=== PATIENT | male | born 1980 | race African-American/Black ===

== ENCOUNTER 2018-02-11 23:20 | Emergency (ER) | payer OTHER ==
[~2018-02-11 23:20] MED LIST: DIFLUCAN150 MG PO; LOTRISONE CREAM15 GM TOP; MOTRIN 600 MG600 MG PO
--- NOTE | 2018-02-12 01:29 | ED GENERAL ADULT ---
History of Present Illness General Chief Complaint: General Adult Stated Complaint: PT C/O " I HAVE THIS COLD" Source: patient Exam Limitations: no limitations Vital Signs & Intake/Output Vital Signs & Intake/Output Vital Signs Date Time Temp Pulse Resp B/P B/P Pulse O2 O2 Flow FiO2 Mean Ox Delivery Rate 02/12 0132 99.8 103 18 131/62 100 Room Air Allergies Coded Allergies: NO KNOWN ALLERGIES (08/12/15) Reconcile Medications Amoxicillin/Potassium Clav (Augmentin 875-125 Tablet) 875 MG-125 MG TABLET 1 TAB PO BID sinusitis Fluconazole (Diflucan) 150 MG TAB 1 TAB PO DAILY tinea cruris Ibuprofen 800 MG TABLET 1 TAB PO TID PRN fever Ibuprofen (Motrin 600 MG Tab) 600 MG TAB 1 TAB PO Q6P PRN PAIN Lotrisone (Lotrisone Cream) 15 GM CRM 1 NATHAN TOP QAMPM tinea cruris apply to affected area(s) for 3 weeks Triage Nurses Notes Reviewed? yes Onset: Gradual Duration: week(s):, waxing and waning Timing: recent history Injury Environment: home Severity: mild No Modifying Factors: none Modifying Factors: Improves With: rest. Associated Symptoms: cough, sinus congestion HPI: 37 yo gentleman in prior good health presents with cough, sinus congestion with increased sputum production, intermittent fevers. He notes no shortness of breath, chills, abdominal pain, chest pain, dyspnea, n/ v/diarrhea. He has not taken other medications. He is otherwise well. Past History Medical History Any Pertinent Medical History? none Surgical History Surgical History: non-contributory Psychosocial History What is your primary language Persian Family History Hx Contributory? No Review of Systems Review of Systems Constitutional: Reports: no symptoms. EENTM: Reports: no symptoms. Respiratory: Reports: no symptoms. Cardiovascular: Reports: no symptoms. GI: Reports: no symptoms. Genitourinary: Reports: no symptoms. Musculoskeletal: Reports: no symptoms. Skin: Reports: no symptoms. Neurological/Psychological: Reports: no symptoms. Hematologic/Endocrine: Reports: no symptoms. Immunologic/Allergic: Reports: no symptoms. All Other Systems: Reviewed and Negative Physical Exam Physical Exam General Appearance: well developed/nourished, no apparent distress Head: atraumatic, normal appearance Eyes: Bilateral: normal appearance. Ears, Nose, Throat: normal pharynx, inflamed turbinates, mild sinus tenderness to palpation. Neck: normal inspection, supple, full range of motion Respiratory: normal breath sounds, chest non-tender, no respiratory distress, quiet respiration Cardiovascular: regular rate/rhythm Gastrointestinal: normal bowel sounds, soft, non-tender, no organomegaly Back: normal inspection, normal range of motion Extremities: normal inspection, normal capillary refill, normal range of motion, no edema Neurologic/Psych: no motor/sensory deficits, awake, alert, oriented x 3 Skin: intact, normal color Core Measures ACS in differential dx? No CVA/TIA Diagnosis: No Sepsis Present: No Sepsis Focused Exam Completed? No Progress Differential Diagnoses I considered the following diagnoses in my evaluation of the patient: sinusitis - bacterial vs viral vs allergic vs other. Plan of Care: augmentin/nsaids, close follow up advised. pt is well appearing in the ED. Initial ED EKG: none Departure Departure Disposition: HOME OR SELF CARE Condition: Stable Clinical Impression Primary Impression: Sinusitis Secondary Impressions: Fever Referrals: Unknown (PCP/Family) Departure Forms: Customer Survey General Discharge Information Prescriptions: Current Visit Scripts Amoxicillin/Potassium Clav (Augmentin 875-125 Tablet) 1 TAB PO BID #20 TAB Ibuprofen 1 TAB PO TID PRN fever #50 TAB Critical Care Note Critical Care Note Critical Care Time: non-applicable
[2018-02-12 01:32] VITALS: BP 131/62
[2018-02-12] MEDS ORDERED: AUGMENTIN 875-1 EACH PO (01:36)
[2018-02-12] MEDS ORDERED: IBUPROFEN800 M1 PO (01:36)
== END 2018-02-12 01:41 ==
LOC: ERH 23:20
DX: J32.9 Chronic sinusitis, unspecified (principal)

== ENCOUNTER 2018-03-29 18:24 | Emergency (ER) | payer OTHER ==
[~2018-03-29] VITALS: Ht 180.3 cm; Wt 81.6 kg
[~2018-03-29 18:24] MED LIST changes: +AUGMENTIN 875-1 EACH PO; +CLARINEX5 M1 PO; +FLONASE ALLERG9.9 ML NAS; +IBUPROFEN800 M1 PO; +PATADAY2.5 ML OPH
--- NOTE | 2018-03-29 19:19 | ED GI/GU/ABDOMINAL COMPLAINT ---
History of Present Illness General Chief Complaint: Abdominal Pain/Flank Pain Stated Complaint: ABD PAIN Source: patient Exam Limitations: no limitations Vital Signs & Intake/Output Vital Signs & Intake/Output Vital Signs Date Time Temp Pulse Resp B/P B/P Pulse O2 O2 Flow FiO2 Mean Ox Delivery Rate 03/29 2245 98.0 98 20 142/68 98 Room Air 03/29 2158 100 18 130/78 99 Room Air 03/29 1831 97.5 116 18 128/80 97 Room Air ED Intake and Output 03/30 0000 03/29 1200 Intake Total 1000 Output Total Balance 1000 Intake, IV 1000 Patient 180 lb Weight Weight Reported by Patient Measurement Method Allergies Coded Allergies: NO KNOWN ALLERGIES (08/12/15) Reconcile Medications Amoxicillin/Potassium Clav (Augmentin 875-125 Tablet) 875 MG-125 MG TABLET 1 TAB PO BID sinusitis Desloratadine (Clarinex) 5 MG TABLET 1 TAB PO DAILY PRN ALLERGIES Fluconazole (Diflucan) 150 MG TAB 1 TAB PO DAILY tinea cruris Fluticasone Propionate 50 MCG/ACTUATION SPRAY.SUSP 2 SPRAY NASB DAILY ALLERGIES (Reported) Fluticasone Propionate (Flonase Allergy Relief) 50 MCG/ACTUATION SPRAY.SUSP 2 SPRAY SHA DAILY PRN CONGESTION Ibuprofen 800 MG TABLET 1 TAB PO TID PRN fever Ibuprofen (Motrin 600 MG Tab) 600 MG TAB 1 TAB PO Q6P PRN PAIN Lotrisone (Lotrisone Cream) 15 GM CRM 1 NATHAN TOP QAMPM tinea cruris apply to affected area(s) for 3 weeks Olopatadine HCl (Pataday) 0.2 % DROPS 1 GTT OPH DAILY ALLERGIES Ondansetron (Zofran Odt) 4 MG TAB.RAPDIS 1 TAB SL TID PRN NAUSEA Triage Note: REPORTS ABDOMINAL DISCOMFORT X 2 MONTHS INTERMITTENTLY. REPORTS TO FEEL BLOATED AND TENDER TO TOUCH. DENIED DIFF GOING TO THE BATHROOM. ALSO REPORTS NON DESIRED WEIGHT LOSS. Triage Nurses Notes Reviewed? yes Onset: Abrupt Duration: week(s): (GREATER THAN 6 MONTHS) Timing: recent history Quality/Severity: dullness, fullness Severity Numbers: 7 Location: generalized abdomen Radiation: no radiation Activities at Onset: none Prior Abdominal Problems: similar symptoms Past Sexual History: Unobtainable at this time No Modifying Factors: none Modifying Factors: Worsens With: palpation. Associated Symptoms: abdominal pain, WEIGHT LOSS HPI: 38-year-old male with no past medical history of present for evaluation of abdominal pain and weight loss. Patient states that for the past at least 6 months he has had a pain and fullness in his abdomen. The pain is located diffusely in the abdomen worse in the periumbilical area. He describes it as a fullness and cramping. He says the pain is only present with palpation does not cause him any problems when he is not touching the area. He does report he said a decreased appetite and reports nausea and several episodes of vomiting over the past week. He states that the decreased appetite and also going on for months and that he has lost a large amount of weight. He states that over the past week though that he's had the nausea and vomiting. He states that he only vomits when he eats certain foods. He does not have pain when eating food. (Jonas Chow) Past History Travel History Traveled to [place] past 21 day No Medical History Any Pertinent Medical History? 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 No (Jonas Chow) Review of Systems Review of Systems Constitutional: Reports: malaise, weakness, unexplained weight loss. EENTM: Reports: no symptoms. Respiratory: Reports: no symptoms. Cardiovascular: Reports: no symptoms. GI: Reports: see HPI, abdominal pain, nausea, vomiting. Genitourinary: Reports: no symptoms. Musculoskeletal: Reports: no symptoms. Skin: Reports: no symptoms. Neurological/Psychological: Reports: no symptoms. Hematologic/Endocrine: Reports: no symptoms. Immunologic/Allergic: Reports: no symptoms. All Other Systems: Reviewed and Negative (Jonas Chow) Physical Exam Physical Exam General Appearance: well developed/nourished, no apparent distress, alert, awake Head: atraumatic, normal appearance Eyes: Bilateral: normal appearance, PERRL, EOMI. Ears, Nose, Throat, Mouth: moist mucous membrane Neck: normal inspection, supple, full range of motion Respiratory: normal breath sounds, chest non-tender, no respiratory distress, lungs clear Cardiovascular: regular rate/rhythm, normal peripheral pulses Peripheral Pulses: 2+ radial (R), 2+ radial (L) Gastrointestinal: normal bowel sounds, mass, hepatomegaly, spleenomegaly, THERE IS A LARGE RIGID MASS PRESENT IN THE LEFT UPPER QUADRANT LEFT PERIUMBILICAL EPIGASTRIC AND LEFT LOWER QUADRANT. tHIS AREA IS TENDER TO PALPATION. tHE RIGHT LOWER QUADRANT IS SOFT AND NONTENDER. Back: normal inspection, normal range of motion, no vertebral tenderness Extremities: normal range of motion Neurologic/Psych: no motor/sensory deficits, awake, alert, oriented x 3, normal gait Skin: intact, normal color, warm/dry Core Measures ACS in differential dx? No Sepsis Present: No Sepsis Focused Exam Completed? No (Patricio ZAVALA,Jonas) Progress Differential Diagnosis: diverticulitis, gastritis, hernia, pancreatitis, PUD/ GERD, perforated viscous, SBO, LYMPHOMA, LEUKEMIA, MASS, ABSCESS Plan of Care: Orders Procedure Date/time Status LACTIC ACID 03/30 0008 Active Add-on Test (ER Only) 03/29 2242 Active Add-on Test (ER Only) 03/29 2112 Active PARTIAL THROMBOPLASTIN TIME 03/29 2112 Complete PROTHROMBIN TIME 03/29 2112 Complete LACTIC ACID 03/29 2108 Complete Add-on Test (ER Only) 03/29 2101 Active MONOSPOT TEST 03/29 1930 Complete FERRITIN 03/29 1930 Complete SERUM IRON 03/29 1930 Complete URINALYSIS 03/29 1855 Complete LIPASE 03/29 1855 Complete COMPREHENSIVE METABOLIC PANEL 03/29 1855 Complete CBC WITHOUT DIFFERENTIAL 03/29 1855 Complete Laboratory Tests 03/29/182209: Flow Cytometry Specimen Pending 03/29/182109: Lactic Acid 0.9, PT 15.8 H, INR 1.44 H, APTT 28 03/29/182053: Urinalysis LIGHT H, Urine Color YEL, Urine Clarity CLEAR, Urine pH 6.0, Ur Specific Criders 1.025, Urine Protein TRACE H, Urine Ketones NEG, Urine Nitrite NEG, Urine Bilirubin NEG, Urine Urobilinogen 1.0, Ur Leukocyte Esterase NEG, Ur Microscopic SEDIMENT EXAMINED, Urine RBC 1-3, Urine WBC 1-3 H, Urine Mucus RARE , Urine Hemoglobin NEG, Urine Glucose NEG 03/29/181929: Anion Gap 13, Estimated GFR > 60, BUN/Creatinine Ratio 19.0, Glucose 79, Calcium 9.2, Iron 38 L, Ferritin 99.6, Total Bilirubin 0.6, AST 15 L, ALT 23, Alkaline Phosphatase 70, Total Protein 6.8, Albumin 3.8, Globulin 3.0, Albumin/Globulin Ratio 1.3, Lipase 60, CBC w Diff MAN DIFF ORDERED, RBC 3.87 L, MCV 73.5 L, MCH 23.2 L, MCHC 31.5 L, RDW 19.4 H, MPV 7.9, Gran % 35.0 L, Lymphocytes % 57.4 H, Monocytes % 2.9, Eosinophils % 0.3, Basophils % 4.4 H, Absolute Granulocytes 7.5 H, Segmented Neutrophils 32 L, Absolute Lymphocytes 12.4 H, Lymphocytes 67 H, Monocytes 1 L, Absolute Monocytes 0.6, Absolute Eosinophils 0.1, Absolute Basophils 1.0, Nucleated RBCs 1 H, Platelet Estimate VERIFIED BY SMEAR , Polychromasia 1+, Anisocytosis 1+, Fld Total RBCs Counted 100, Infectious [place] Titer NEGATIVE PT has a very large left sided abdominal mass which may be his spleen. He's been having abdominal pain and weight loss for greater than 6 months. He appears clinically well and has vital signs are stable. Labs CT scan ordered. Blood work shows a white count of 21,000 and a hemoglobin OF 9. He has no baseline to compare to. He denies any melena or bright red blood per rectum. CT scan shows massive splenomegaly with retroperitoneal and inguinal lymphadenopathy. Spoke with on-call sales representative electric service who suspects lymphoma they recommend peripheral blood flow cytometry which was ordered here and sent. Patient will follow up with hematology on Saturday with Dr. Torres. Reviewed results with patient. Advised him to rest and avoid excessive physical activity anything THAT WOULD INCREASE risk of splenic rupture. Discussed with him of the importance of close follow-up. Case discussed Dr. Vidal agrees. Diagnostic Imaging: Viewed by Me: CT Scan. Discussed w/RAD: CT Scan. Radiology Impression: PATIENT: MELISSA COULTER PRESENT AGE: 38 PATIENT ACCOUNT NO: [id number] : 78 LOCATION: [facility] ORDERING PHYSICIAN: Jonas ZAVALA SERVICE DATE: 03/29/18 EXAM TYPE: CAT - CT ABD & PELVIS W IV CONTRAST EXAMINATION: CT ABD PELVIS W IV CONTRAST CLINICAL INFORMATION: Malignancy, hernia, weight loss abdominal mass COMPARISON: None TECHNIQUE: Multidetector volumetric imaging was performed from the superior aspect of the liver through the pubic symphysis 95 mL Optiray 320 injected. Sagittal and coronal reformatted images were obtained on the technologist's workstation. DLP: 341 mGy-cm FINDINGS: LOWER THORAX: Included lung bases are clear. HEPATOBILIARY: No focal hepatic lesions. No biliary ductal dilatation. GALLBLADDER: Gallbladder unremarkable. SPLEEN: Spleen is massively enlarged measuring 34 cm craniocaudally 22 x 11 cm transversely occupying almost the entire LEFT side of the abdomen displacing the LEFT kidney bowel, pancreas to the RIGHT PANCREAS: Poorly visualized grossly unremarkable. STOMACH AND GASTROINTESTINAL TRACT: Stomach is grossly unremarkable. There is no bowel distention or thickening. ADRENALS: No adrenal nodules. KIDNEYS/URETERS: There are 2 tiny 2 mm and 3 mm stone in the LEFT kidney nonobstructing. Left kidney is displaced to the RIGHT. Right kidney is unremarkable. No hydronephrosis. URINARY BLADDER: Urinary bladder is decompressed unopacified. PELVIC VISCERA: Unremarkable PERITONEUM: No free air or fluid. LYMPH NODES: Enlarged retroperitoneal para-aortic lymph nodes detected. Also few mildly enlarged lymph nodes found in the inguinal region. VASCULAR: Unremarkable BONES, ABDOMINAL WALL AND SOFT TISSUES: Age-appropriate changes of the spine and skeletal system, no destructive osteolytic or osteosclerotic bone lesion found IMPRESSION: 1. Massively enlarged spleen measuring up to 34 cm craniocaudally occupying almost the entire LEFT side of the abdomen displacing the bowel, the LEFT kidney, the pancreas and stomach to the RIGHT. Combined with few enlarged retroperitoneal and inguinal lymph nodes raising concern for possible lymphoproliferative disease. 2. There are 2 small nonobstructing LEFT kidney stones. DICTATED BY: Clifton OLIVER,Getachew DATE/TIME DICTATED:03/29/182113 ASSISTANT TO THE DIRECTOR:DANDRE DATE/TIME TRANSCRIBED:03/29/182113 CONFIDENTIAL, DO NOT COPY WITHOUT APPROPRIATE AUTHORIZATION. <Electronically signed in Other Vendor System> SIGNED BY: Getachew Lazo MD 03/29/182123 Initial ED EKG: none (Patricio ZAVALA,Jonas) Departure Departure Disposition: HOME OR SELF CARE Condition: Stable Clinical Impression Primary Impression: Splenomegaly Referrals: Leander Larson MD Patient Has No Primary Care Dr (PCP/Family) Additional Instructions: Make a follow-up appointment with provided sales representative electric service DR ARROYO SOON possible. Is very important that you follow-up within the next few days. Rest avoid excessive physical activity that would put YOU at risk of rupture of your spleen. Increase fluids Tylenol ibuprofen for pain. Return to the emergency department with any concerns. Departure Forms: Customer Survey General Discharge Information Prescriptions: Current Visit Scripts Ondansetron (Zofran Odt) 1 TAB SL TID PRN NAUSEA #10 TAB (Jonas Chow) PA/CHIEF OPERATOR LOCK TENDER Co-Sign Statement Statement: ED Attending supervision documentation- [] I saw and evaluated the patient. I have also reviewed all the pertinent lab results and diagnostic results. I agree with the findings and the plan of care as documented in the PA's/CHIEF OPERATOR LOCK TENDER's documentation. [X] I have reviewed the ED Record and agree with the PA's/CHIEF OPERATOR LOCK TENDER's documentation. [] Additions or exceptions (if any) to the PAs/CHIEF OPERATOR LOCK TENDER's note and plan are summarized below: [] (Young OLIVER,Ronny Chaudhari)
[2018-03-29 19:42] LABS: ABSOLUTE EOSINOPHIL COUNT 0.1 /CUMM (0.0-0.7); ABSOLUTE GRANULOCYTE CT 7.5 /CUMM (1.4-6.5); ABSOLUTE LYMPH COUNT 12.4 /CUMM (1.2-3.4); ABSOLUTE MONOCYTE COUNT 0.6 /CUMM (0.10-0.60); BASOPHIL % 4.4 % (0.0-2.0); EOSINOPHIL % 0.3 % (0-5); HEMATOCRIT 28.5 % (42-52); MEAN CORPUSCULAR HGB 23.2 PG (27.0-31.0); MEAN CORPUSCULAR HGB CONC 31.5 G/DL (33.0-37.0); MEAN CORPUSCULAR VOLUME 73.5 FL (80.0-94.0); MEAN PLATELET VOLUME 7.9 FL (7.4-10.4); PLATELET COUNT 230 /CUMM (130-400); RBC DISTRIBUTION WIDTH 19.4 % (11.5-14.5); RED BLOOD CELL CT 3.87 /CUMM (4.70-6.10); WHITE BLOOD CELL COUNT 21.5 /CUMM (4.8-10.8)
[2018-03-29] MEDS ORDERED: FLUTICASONE PRO16 GM NASB (19:51)
--- NOTE | 2018-03-29 21:24 | CT SCAN REPORT ---
EXAMINATION: CT ABD PELVIS W IV CONTRAST CLINICAL INFORMATION: Malignancy, hernia, weight loss abdominal mass COMPARISON: None TECHNIQUE: Multidetector volumetric imaging was performed from the superior aspect of the liver through the pubic symphysis 95 mL Optiray 320 injected. Sagittal and coronal reformatted images were obtained on the technologist's workstation. DLP: 341 mGy-cm FINDINGS: LOWER THORAX: Included lung bases are clear. HEPATOBILIARY: No focal hepatic lesions. No biliary ductal dilatation. GALLBLADDER: Gallbladder unremarkable. SPLEEN: Spleen is massively enlarged measuring 34 cm craniocaudally 22 x 11 cm transversely occupying almost the entire LEFT side of the abdomen displacing the LEFT kidney bowel, pancreas to the RIGHT PANCREAS: Poorly visualized grossly unremarkable. STOMACH AND GASTROINTESTINAL TRACT: Stomach is grossly unremarkable. There is no bowel distention or thickening. ADRENALS: No adrenal nodules. KIDNEYS/URETERS: There are 2 tiny 2 mm and 3 mm stone in the LEFT kidney nonobstructing. Left kidney is displaced to the RIGHT. Right kidney is unremarkable. No hydronephrosis. URINARY BLADDER: Urinary bladder is decompressed unopacified. PELVIC VISCERA: Unremarkable PERITONEUM: No free air or fluid. LYMPH NODES: Enlarged retroperitoneal para-aortic lymph nodes detected. Also few mildly enlarged lymph nodes found in the inguinal region. VASCULAR: Unremarkable BONES, ABDOMINAL WALL AND SOFT TISSUES: Age-appropriate changes of the spine and skeletal system, no destructive osteolytic or osteosclerotic bone lesion found IMPRESSION: 1. Massively enlarged spleen measuring up to 34 cm craniocaudally occupying almost the entire LEFT side of the abdomen displacing the bowel, the LEFT kidney, the pancreas and stomach to the RIGHT. Combined with few enlarged retroperitoneal and inguinal lymph nodes raising concern for possible lymphoproliferative disease. 2. There are 2 small nonobstructing LEFT kidney stones.
[2018-03-29 21:54] LABS: PT 15.8 SEC (9.4-12.5); PTT 28 SEC (25-37)
[2018-03-29] MEDS ORDERED: ZOFRAN ODT4 M1 SL (22:39)
[2018-03-29 22:45] VITALS: BP 142/68
== END 2018-03-29 22:46 ==
LOC: ERH 18:24
PROVIDERS: Physician Assistant Medical
DX: R16.1 Splenomegaly, not elsewhere classified (principal); R10.84 Generalized abdominal pain; R11.2 Nausea with vomiting, unspecified
CPT/HCPCS: 74177; 81001; 96360

== ENCOUNTER → 2018-04-04 | Day surgery (SDC) | payer OTHER ==
[~2018-04-04] VITALS: Ht 175.3 cm; Wt 81.6 kg
[~2018-04-04] MED LIST changes: +FLUTICASONE PRO16 GM NASB; +ZOFRAN ODT4 M1 SL
--- NOTE | 2018-04-14 13:06 | Operative Report ---
Operative/Inv Procedure Report Surgery Date: 04/04/18 Name of Procedure: Excision of left inguinal lymph node Pre-Operative Diagnosis: Splenomegaly lymphadenopathy Post-Operative Diagnosis: Same Estimated Blood Loss: scant Surgeon/Distribution Collection Operator: Daniel Herrera MD Anesthesia: local monitored anesthesi Operative/Procedure Note Note: Patient positioned supine after successful induction of Mac sedation the patient 's bilateral inguinal regions were clipped prepped and draped in usual sterile fashion it seemed that the largest most accessible palpable node was on the left , we aimed an oblique incision over it measuring about 3 cm long and after injecting local anesthetic and incision with a 15 blade following the skin lines. This was deepened through the fascia until we exposed the surface of the lymph node which was then dissected circumferentially care was taken to avoid injury to underlying deeper structures and nerves and vessels and then the elongated rounded lymph node was excised there were others smaller bilaterally cautery was used for most of the dissection we checked for hemostasis no sutures ligation was needed and reapproximated the incision in layers using interrupted 3-0 Vicryl sutures deep and then running subcuticular 4-0 Biosyn suture for the skin itself followed by Mastisol Steri-Strips Telfa and Tegaderm. EBL minimal lap and sponge counts correct wound expectancy clean IV fluids crystalloid complications none patient tolerated the procedure well was extubated and returned to recovery room in satisfactory condition.
== END ==
LOC: STS 01:26
DX: C82.95 Follicular lymphoma, unspecified, lymph nodes of inguinal region and lower limb (principal); R59.0 Localized enlarged lymph nodes; R16.1 Splenomegaly, not elsewhere classified
CPT/HCPCS: 88184; J0131; J0690; J2250

== ENCOUNTER → 2018-04-25 | Day surgery (SDC) | payer OTHER ==
[~2018-04-25] VITALS: Ht 175.3 cm; Wt 81.6 kg
--- NOTE | 2018-04-25 10:19 | RADIOLOGY REPORT ---
EXAMINATION: XR PORTABLE CHEST CLINICAL INFORMATION: Status post Port-A-Cath. COMPARISON: PET CT performed 04/08/2018. TECHNIQUE: Portable frontal view of the chest was obtained. FINDINGS: Right internal jugular Port-A-Cath with tip terminating over the right atrium near the caval atrial junction. No pneumothorax. No parenchymal consolidation or pleural effusion. No mediastinal widening. No acute osseous abnormalities. IMPRESSION: Right internal jugular Port-A-Cath with tip terminating over the right atrium near the caval atrial junction. No pneumothorax.
--- NOTE | 2018-04-25 17:30 | RADIOLOGY REPORT ---
EXAMINATION:\H\ \N\XR CHEST CLINICAL INFORMATION: Port-A-Cath insertion in operating room. COMPARISON: Chest CT from 04/08/2018. TECHNIQUE: Intraoperative fluoroscopic imaging of the chest was utilized at the time of Port-A-Cath insertion. NUMBER OF SAVED IMAGES: 2. FLUOROSCOPY TIME: 0.6 minutes. DOSE: 3.71 mGy (0.120 mGym2) FINDINGS: A right chest wall medication port has been placed. The catheter loops over the medial clavicle to enter the internal jugular vein. The tip of the catheter is at the level of the junction of the superior vena cava and right atrium. Please refer to the operative report. IMPRESSION: Fluoroscopic imaging of the chest was utilized at the time of Port-A-Cath insertion.
--- NOTE | 2018-04-28 18:26 | Operative Report ---
Operative/Inv Procedure Report Surgery Date: 04/25/18 Name of Procedure: Fluoroscopic and ultrasound guided insertion of tunneled Port-A-Cath via right internal jugular vein Pre-Operative Diagnosis: Lymphoma, splenomegaly Post-Operative Diagnosis: Same Estimated Blood Loss: scant Surgeon/Health/Safety Job Titles: Javier OLIVER,Daniel Muniz Anesthesia: general endotracheal tube Operative/Procedure Note Note: With the patient supine on the OR table, right arm tucked, head not turned, after induction of MAC sedation, the patient's right subclavian area, including the shoulder neck and contralateral chest, were prepped and draped in the usual sterile fashion. After injecting local anesthetic in the right infraclavicular area, skin, subcutaneous to the clavicle, and inferiorly where the pocket will be, the patient was repositioned to Trendelenburg. Putting your right index finger on the sternal notch and thumb pressing down lateral to the curve of the clavicle, I made a puncture through the skin with the 15 blade scalpel next to thumb. Then along that line towards the tip of your finger, advance a large- bore needle, bevel towards the feet, on a slip tip 10 mL syringe barrel flat against the deltoid, advancing to bone and then "walking" it down just under the clavicle keeping the needle flat as possible, while maintaining vacuum with the plunger, trying to get flashed axis the subclavian vein and tied a few times and couldn't do it so I switched my approach to the right internal internal jugular vein. Aiming at the apex of the small narrow triangle between the 2 heads of the sternocleidal mastoid muscle with the patient's head turned to the left I accessed the right internal jugular vein with the Brown 22-gauge finder needle first, and then made a small bubba in the skin with a 15 blade next to this needle and advanced the large-bore needle but again was unable to access the vein it seemed unusual we checked our positioning and then decided to use the ultrasound where we were able to identify the vein (separate from the carotid) and then I was able to access it with a large-bore needle, confirming the position with the C-arm fluoroscope, making sure the wire is traveling down along the cava towards the right side of the heart and not up or across, and no ectopy. Next I secured the wire to the drape, measured (approximately 27 cm), cut and attached the catheter to the port. Approximately 3-4 cm inferior to the stick site a 2-1/2 cm long skin incision was made with a 15 blade scalpel along Langers lines. It was deepened with cautery and a space was developed inferiorly under the subcutaneous layer. The Port-A-Cath was laid in there and secured in [address] with 2-0 Prolene through the holes in the port, the sutures were kept loose on snaps at this point. Next the catheter was tunneled up subcutaneously with the tunneler up over the clavicle into the stick site in the neck. Then the dilator / peel-away piece, was passed over the wire until you could feel it slide into the vein while advancing simultaneously pull the dilator out and advance the sheath, eventually pulling out the dilator and wire completely. Then the catheter was put into the sheath as far as it'll go then while holding that knuckle down with DeBakey's, gently peel-away the sheath with your podiatric assistant. Now the correct position of the catheter was confirmed with the fluoroscope, using a Delgado needle and heparinized saline solution, the catheter was first aspirated then flushed with approximately 3 mL's, with minimal resistance. The patient was repositioned to neutral, after tying down the 2 Prolenes, the larger incision was closed in layers, 3-0 Vicryl deep and 4-0 subcuticular Monocryl for the skin, and one subcuticular Monocryl for the stick site. Both areas were covered with Mastisol Steri-Strips Telfa and Tegaderm. Chest x-ray was ordered to be done in the recovery room. Lap and sponge counts were correct. Wound expectancy was clean, IV fluids crystalloid, complications none, patient tolerated the procedure well was awakened and returned to the recovery room in satisfactory condition.
== END ==
LOC: STS 02:00
DX: C85.90 Non-Hodgkin lymphoma, unspecified, unspecified site (principal); R16.1 Splenomegaly, not elsewhere classified
CPT/HCPCS: 71045; C1751; J0690; J1644; J2250; J3490